=== PATIENT | female | born 1960 | race Caucasian/White ===

== ENCOUNTER 2016-10-24 11:45 | Emergency (ER) | payer MEDICAID ==
[2016-10-24 12:04] VITALS: BP 115/66; PULSE 75; RESP 18; TEMP 98; O2SAT 99; BMI 24.5
--- NOTE | 2016-10-24 12:48 | ED PDOC ---
Upper Extremity Pain/Injury Time Seen by Provider: 10/24/16 12:04 Chief Complaint (Nursing): Upper Extremity Problem/Injury Chief Complaint (Provider): Right Arm Pain History Per: Patient History/Exam Limitations: no limitations Onset/Duration Of Symptoms: Days (8) Current Symptoms Are (Timing): Still Present Quality: "Pain" Additional Complaint(s): Francesca Willett is a 56 y/o female presenting to the ER on 10/24/2016 with complaints of right upper arm pain for eight days. Patient states presentation of pain and symptoms began on October 16. She reports when she woke up the following morning, she noticed swelling to the right upper arm with a bug bite "over a vein". Patient further states the bite looked like pimple which since onset has resolved. Patient also notes the swelling has decreased, but she noticed lump on right upper arm associated with pain on movement of her shoulder , prompting her to seek medical evaluation She denies trauma, fever, numbness, tingling sensations, chest pain, shortness of breath. Past Medical History Reviewed: Historical Data, Nursing Documentation, Vital Signs Vital Signs: Last Vital Signs Temp 98.0 F 10/24/16 12:03 Pulse 75 10/24/16 12:03 Resp 18 10/24/16 12:03 BP 115/66 10/24/16 12:03 Pulse Ox 99 10/24/16 12:03 - Medical History PMH: Anxiety, Asthma, Depression, HIV, HTN, Migraine Denies: Chronic Kidney Disease - Surgical History Surgical History: ( x 4) - Family History Family History: States: Unknown Family Hx - Social History Current smoker - smoking cessation education provided: No Alcohol: None Drugs: Denies - Immunization History Hx Tetanus Toxoid Vaccination: No Hx Influenza Vaccination: No Hx Pneumococcal Vaccination: No - Home Medications Home Medications: Ambulatory Orders Medication Instructions Recorded Clonazepam [Klonopin] 1 mg PO BID 07/12/13 Elviteg/Carine/Emtric/Tenofo Dis 1 tab PO DAILY 07/12/13 [Stribild] Prazosin Hydrochloride [Minipress] 2 mg PO HS 07/12/13 Sertraline [Zoloft] 200 mg PO DAILY 07/12/13 Prednisone 2 tab PO DAILY #6 tab 12/20/14 Albuterol Sulfate [Proair Hfa] 1 puff INH PRN PRN 12/28/14 Hydrocodone/Ibuprofen [Vicoprofen 1 tab PO Q6H #15 tab 08/20/15 7.5 mg-200 mg] Pantoprazole Sodium [Protonix] 40 mg PO DAILY #15 ect 02/16/16 Ranitidine HCl [Zantac] 75 mg PO Q12 PRN #10 tablet 02/16/16 Amoxicillin/Clavulanate [Augmentin 1 tab PO BID #14 tab 05/01/16 875 MG-125 MG] Guaifen/Phenyleph/Acetaminophn 1 tab PO Q6 #1 packet 05/01/16 [Mucinex Fast-Max Cold & Sinus 325 mg-200 mg-5] Naproxen [Naprosyn] 500 mg PO BID PRN #30 tab 10/24/16 - Allergies Allergies/Adverse Reactions: Allergies Allergy/AdvReac Type Severity Reaction Status Date / Time tramadol Allergy VOMITING Verified 10/24/16 12:26 Review of Systems ROS Statement: Except As Marked, All Systems Reviewed And Found Negative Constitutional: Negative for: Fever Cardiovascular: Negative for: Chest Pain Respiratory: Negative for: Shortness of Breath Musculoskeletal: Positive for: Shoulder Pain, Arm Pain Neurological: Negative for: Weakness, Numbness Physical Exam - Reviewed Nursing Documentation Reviewed: Yes Vital Signs Reviewed: Yes - Physical Exam Appears: Positive for: Non-toxic, No Acute Distress Head Exam: Positive for: ATRAUMATIC, NORMOCEPHALIC Skin: Positive for: Normal Color. Negative for: Rash Eye Exam: Positive for: Normal appearance Neck: Positive for: Normal Cardiovascular/Chest: Positive for: Regular Rate, Rhythm. Negative for: Murmur Respiratory: Positive for: Normal Breath Sounds. Negative for: Wheezing, Respiratory Distress Pulses-Radial (L): 2+ Pulses-Radial (R): 2+ Extremity: Positive for: Normal ROM (actively of R shoulder and R elbow), Tenderness ((+) mild tenderness over right shoulder), Capillary Refill (<2 seconds in right arm), Swelling ((+) minimal swelling to right upper arm), Other (small pea sized mobile mass on right upper lateral arm without fluctuance , induration, warmth, or erythema; equal edge sander strength bilat; no lesions in right arm; no warmth or erythema ). Negative for: Deformity Neurologic/Psych: Positive for: Alert, Oriented. Negative for: Motor/Sensory Deficits - ECG O2 Sat by Pulse Oximetry: 99 - Radiology X-Ray: Interpreted by Me (Shoulder and humerus x-ray) X-Ray Interpretation: No Acute Disease - Progress ED Course And Treament: Duplex RUE vein: no DVT. Pt. informed that arm mass is likely a lipoma. Instructed to f/u with Dr. Hurt for further evaluation of arm mass. Medical Decision Making Medical Decision Makin:04 Initial Impression- 55 y/o female with RUE pain Initial Plan- * XR Right Humerus * XR Right Shoulder * US Duplex Upper Extremity Documented by Haydee Brown, acting as a scribe for Florencio Early PA-C All medical record entries made by the Scribe were at my direction and personally dictated by me. I have reviewed the chart and agree that the record accurately reflects my personal performance of the history, physical exam, medical decision making, and the department course for this patient. I have also personally directed, reviewed, and agree with the discharge instructions and disposition. Disposition - Clinical Impression Clinical Impression: Arm pain - Patient ED Disposition Is Patient to be Admitted: No - Disposition Referrals: [facility] [Outside] Disposition: Routine/Home Disposition Time: 14:52 Condition: STABLE Prescriptions: Naproxen [Naprosyn] 500 mg PO BID PRN #30 tab PRN Reason: Pain Instructions: Arm Pain (ED) Print Language: HUNGARIAN
--- NOTE | 2016-10-24 14:03 | RAD ---
PROCEDURE: Radiographs of the Right Shoulder HISTORY: pain COMPARISON: Correlation made with concurrent radiographs of the right humerus. No evidence FINDINGS: BONES: Normal. No fracture. JOINTS: Normal. Glenohumeral and acromioclavicular joints preserved. No osteoarthritis. SOFT TISSUES: Normal. OTHER FINDINGS: None. IMPRESSION: No evidence of acute displaced fracture nor dislocation bleed. Minimal degenerative changes right acromioclavicular joint
--- NOTE | 2016-10-24 14:40 | US ---
PROCEDURE: Right upper extremity duplex venous sonography HISTORY: Pain approximately 1 weeks duration COMPARISON: None TECHNIQUE: Real-time ultrasound scan of the veins with color flow, spectral waveform analysis and compression FINDINGS: Right upper extremity: Color Doppler ultrasound examination of the upper extremity venous system was performed from the forearm including antecubital fossa to and including internal jugular and subclavian veins. Normal flow, augmentation and compressibility were noted. No evidence of deep vein thrombosis. IMPRESSION: Negative examination right upper extremity for deep vein thrombosis.
--- NOTE | 2016-10-24 15:54 | RAD ---
PROCEDURE: Radiographs of the right humerus. HISTORY: pain COMPARISON: Correlation made with concurrent radiographs of the right shoulder FINDINGS: BONES: Normal. No fracture or focal lesion. Minor degenerative changes right acromioclavicular joint. SOFT TISSUES: Soft tissues appear grossly unremarkable without evidence of subcutaneous emphysema or. OTHER FINDINGS: None. IMPRESSION: No evidence of acute displaced fracture nor dislocation.
== END 2016-10-24 14:57 | disposition home or self-care (01) ==
LOC: H.ER 11:45
DX: M79.621 Pain in right upper arm (principal); Z86.59 Personal history of other mental and behavioral disorders; B20 Human immunodeficiency virus [HIV] disease; J45.909 Unspecified asthma, uncomplicated